=== PATIENT | female | born 1980 | race Caucasian/White ===

== ENCOUNTER 2016-03-17 23:17 | Emergency (ER) | payer BC ==
[~2016-03-17] VITALS: Ht 154.9 cm; Wt 56.7 kg
[2016-03-17] MEDS ORDERED: SYNTHROID125 MCG PO (23:32)
[2016-03-18] MEDS ORDERED: ZANTAC 150MG T150 MG PO (00:04)
[2016-03-18] MEDS ORDERED: PREDNISONE 20 M20 MG PO (00:04)
[2016-03-18] MEDS ORDERED: ZYRTEC10 M2 PO (00:04)
[2016-03-18 00:48] VITALS: BP 110/76
== END 2016-03-18 00:50 | disposition home or self-care (01) ==
LOC: ER 23:17
DX: L50.9 Urticaria, unspecified (principal)